=== PATIENT | male | born 1985 | race Caucasian/White ===

== ENCOUNTER 2021-05-25 15:54 | Emergency (ER) | payer SELFPAY ==
--- NOTE | 2021-05-25 20:39 | ER ---
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 Noticed a red ll1 spot to L ankle at 7 am. Site is getting more painful, red, and swollen since. Pain radiates up L leg now. Coronavirus screen: Client denies travel out of the [place] in the last 14 days. At this time, the client does not indicate any symptoms associated with coronavirus-19. Ebola Screen: Patient denies travel to an Ebola-affected area in the 21 days before illness onset. Initial Sepsis Screen: Does the patient meet any 2 criteria? HR > 90 bpm. No. Patient's initial sepsis screen is negative. Does the patient have a suspected source of infection? Yes: Skin breakdown/wound. Risk Assessment: Do you want to hurt yourself or someone else? Patient reports no desire to harm self or others. Onset of symptoms was May 25, 2021. 16:12 Method Of Arrival: Ambulatory ll1 16:12 Acuity: WENCESLAO 3 ll1 Historical: - Allergies: 16:14 No Known Allergies; ll1 - PMHx: 16:14 None; ll1 - PSHx: 16:14 None; ll1 - Immunization history:: Client reports receiving the 2nd dose of the Covid vaccine, Flu vaccine is up to date. - Social history:: Smoking status: Patient reports the use of cigarette tobacco products, smokes one-half pack cigarettes per day. Screenin:36 Abuse screen: Denies threats or abuse. Nutritional screening: No deficits noted. em Tuberculosis screening: No symptoms or risk factors identified. Fall Risk None identified. Assessment: 20:37 General: Appears in no apparent distress. comfortable, Behavior is calm, cooperative, em appropriate for age, Denies fever. Pain: Complains of pain in left lateral ankle Pain currently is 6 out of 10 on a pain scale. Neuro: Level of Consciousness is awake, alert, obeys commands, Oriented to person, place, time, situation. Cardiovascular: Capillary refill < 3 seconds Patient's skin is warm and dry. Respiratory: Airway is patent Respiratory effort is even, unlabored, Respiratory pattern is regular, symmetrical. Derm: Skin is intact, is healthy with good turgor, Skin is pink, warm \T\ dry. redness and swelling noted to the left ankle. Musculoskeletal: Capillary refill < 3 seconds, Range of motion: intact in all extremities. Vital Signs: 16:12 BP 131 / 72; Pulse 100; Resp 17; Temp 99.4; Pulse Ox 99% ; Weight 81.65 kg; Height 5 ll1 ft. 10 in. (177.80 cm); Pain 6/10; 20:10 BP 116 / 77; Pulse 95; Resp 16; Temp 98.1(O); Pulse Ox 100% on R/A; Pain 7/10; bb 16:12 Body Mass Index 25.83 (81.65 kg, 177.80 cm) ll1 ED Course: 15:55 Patient arrived in ED. mr 16:12 Arm band placed on. ll1 16:14 Triage completed. ll1 19:37 Dg Espinoza PA is PHCP. [facility] 19:38 Geoff Peralta MD is Attending Physician. [facility] 20:18 Ava Tucker RN is Primary Nurse. zb 20:36 Patient has correct armband on for positive identification. em 20:36 No provider procedures requiring assistance completed. Patient did not have IV access em during this emergency room visit. Administered Medications: 20:36 Drug: Bactrim (trimethoprim-sulfamethoxazole) (160 mg-800 mg (DS) 1 tablet Route: PO; em 20:45 Follow up: Response: Medication administered at discharge. em 20:36 Drug: Cephalexin 500 mg Route: PO; em 20:45 Follow up: Response: Medication administered at discharge. em Outcome: 20:39 Discharge ordered by . [facility] 20:44 Discharged to home ambulatory. em 20:44 Condition: stable 20:44 Discharge instructions given to patient, Instructed on discharge instructions, follow up and referral plans. medication usage, Demonstrated understanding of instructions, follow-up care, medications, Prescriptions given X 2. 20:44 Patient left the ED. em Signatures: Dg Espinoza PA PA jmm RiveraRubia mr Fabian Reid RN RN em Shannon Mariano RN RN bb Claudia Arboleda RN RN ll1 Ava Tucker, RN RN zb
--- NOTE | 2021-05-25 20:40 | EDPHYS ---
Physician Documentation [facility] Name: Daquan Jacobson Age: 35 yrs Sex: Male : 1985 Arrival Date: 05/25/2021 Time: 15:55 Bed 30 Private MD: ED Physician Geoff Peralta HPI: 05/25 20:34 This 35 yrs old Male presents to ER via Ambulatory with complaints of Ankle jmm Swelling. 20:34 The patient presents with pain. Onset: The symptoms/episode began/occurred gradually, jmm today. Associated signs and symptoms: Pertinent positives: rash, swelling. Modifying factors: The symptoms are alleviated by nothing, the symptoms are aggravated by nothing. The patient has not experienced similar symptoms in the past. Patient complains of developing swelling to his left ankle while walking in tall grass. Denies any acute onset bite. . Historical: - Allergies: 16:14 No Known Allergies; ll1 - PMHx: 16:14 None; ll1 - PSHx: 16:14 None; ll1 - Immunization history:: Client reports receiving the 2nd dose of the Covid vaccine, Flu vaccine is up to date. - Social history:: Smoking status: Patient reports the use of cigarette tobacco products, smokes one-half pack cigarettes per day. ROS: 20:34 Constitutional: Negative for fever, chills, and weight loss, Cardiovascular: Negative jmm for chest pain, palpitations, and edema, Respiratory: Negative for shortness of breath, cough, wheezing, and pleuritic chest pain. 20:34 Skin: Positive for erythema, swelling. 20:34 All other systems are negative. Exam: 20:34 Constitutional: This is a well developed, well nourished patient who is awake, alert, jmm and in no acute distress. Head/Face: atraumatic. Eyes: EOMI, no conjunctival erythema appreciated ENT: Moist Mucus Membranes Neck: Trachea midline, Supple Chest/axilla: Normal chest wall appearance and motion. Cardiovascular: Regular rate and rhythm. No edema appreciated Respiratory: Normal respirations, no respiratory distress appreciated Abdomen/GI: Non distended, soft Back: Normal ROM 20:34 Skin: Erythema noted to the left lateral region of the ankle, tender to palpation, no induration appreciated, no purulent drainage appreciated, neurovascular intact. 20:34 Neuro: Orientation: is normal, Mentation: is normal, Memory: is normal. 20:34 Psych: Behavior/mood is pleasant, cooperative. Vital Signs: 16:12 BP 131 / 72; Pulse 100; Resp 17; Temp 99.4; Pulse Ox 99% ; Weight 81.65 kg; Height 5 ll1 ft. 10 in. (177.80 cm); Pain 6/10; 20:10 BP 116 / 77; Pulse 95; Resp 16; Temp 98.1(O); Pulse Ox 100% on R/A; Pain 7/10; bb 16:12 Body Mass Index 25.83 (81.65 kg, 177.80 cm) ll1 MDM: 20:05 Patient medically screened. [facility] 20:38 Data reviewed: vital signs, nurses notes. Counseling: I had a detailed discussion with mckinley the patient and/or guardian regarding: the historical points, exam findings, and any diagnostic results supporting the discharge/admit diagnosis, the need for outpatient follow up, to return to the emergency department if symptoms worsen or persist or if there are any questions or concerns that arise at home. ED course: Patient is alert and patient is alert and nontoxic in appearance in the ED, I do not suspect snake envenomation at this time. Most likely an acute inflammatory response to an insect bite. Patient is otherwise given strict return precautions. Patient understood and agrees with plan of care.. Administered Medications: 20:36 Drug: Bactrim (trimethoprim-sulfamethoxazole) (160 mg-800 mg (DS) 1 tablet Route: PO; em 20:45 Follow up: Response: Medication administered at discharge. em 20:36 Drug: Cephalexin 500 mg Route: PO; em 20:45 Follow up: Response: Medication administered at discharge. em Disposition: 05/26 07:36 Co-signature as Attending Physician, Geoff Peralta MD. pkl Disposition Summary: 05/25/21 20:39 Discharge Ordered Location: Home [facility] Condition: Stable [facility] Diagnosis - Lower Extremity Cellulitis [facility] Followup: [facility] - With: Private Physician - When: 2 - 3 days - Reason: Recheck today's complaints, Continuance of care, Re-evaluation by your physician Discharge Instructions: - Discharge Summary Sheet [facility] - Cellulitis, Adult [facility] Forms: - Medication Reconciliation Form [facility] - Thank You Letter [facility] - Antibiotic Education [facility] - Prescription Opioid Use [facility] Prescriptions: - Cephalexin 500 mg Oral Capsule - take 1 capsule by ORAL route every 6 hours for 10 days; 40 capsule; Refills: 0, [facility] Product Selection Permitted - Bactrim DS 800-160 mg Oral Tablet - take 1 tablet by ORAL route every 12 hours for 10 days; 20 tablet; Refills: 0, [facility] Product Selection Permitted Signatures: Geoff Peralta MD MD pkl Mickail, Joel, PA PA jmm Munoz, Edgar RN RN Claudia More RN RN ll1
[2021-05-25 20:51] VITALS: BP 131/72; TEMP 99.4; O2SAT 99
[2021-05-25] MEDS ORDERED: SMZ./TMP. 800/160 MG TABLET ONE (20:56)
[2021-05-25] MEDS ORDERED: CEPHALEXIN 250 MG CAP ONE (20:56)
== END 2021-05-25 20:44 | disposition home or self-care (01) ==
LOC: ER 15:54
DX: L03.116 Cellulitis of left lower limb (principal); F17.210 Nicotine dependence, cigarettes, uncomplicated
CPT/HCPCS: 99283